=== PATIENT | male | born 1955 | race Caucasian/White ===

== ENCOUNTER 2020-01-06 13:03 | Inpatient (IN) | payer MEDICARE ==
--- NOTE | 2020-01-06 13:35 | ED ---
Fall HPI - General Chief Complaint: Fall Stated Complaint: Fall Time Seen by Provider: 01/06/20 13:14 Source: patient, EMS, RN notes reviewed, old records reviewed Mode of arrival: EMS - History of Present Illness Initial Comments: This 64-year-old male DF for evasive severe left hip pain, fall to left hip. No travel history sick contacts. Patient has supple fall unable to ambulate with severe left pain patient has episodes of falling especially when he goes from positions of sitting standing he mildly loses consciousness fall exactly what happened to him today. Patient fell and landed on left hip complaining of severe left hip pain MD Complaint: fall -: minutes(s) Fall From: standing When Fall Occurred: 1 hour [employer]IPPING LE[employer] P[employer] Fall Witnessed: yes, by family Place Fall Occurred: home Loss of Consciousness: none Prolonged Down Time?: no Symptoms Prior to Fall: none Location: pelvis Location - Extremities: Left: Thigh Severity: severe Severity scale (1-10): 8 Quality: stabbing, crushing Context: tripped/slipped Associated Symptoms: denies - Related Data Allergies Allergy/AdvReac Type Severity Reaction Status Date / Time No Known Allergies Allergy Verified 01/06/20 13:20 Review of Systems ROS Statement: Those systems with pertinent positive or pertinent negative responses have been documented in the HPI. ROS Other: All systems not noted in ROS Statement are negative. Past Medical History Past Medical History: CVA/TIA, Hypertension, Syncope, Vascular Disorder Additional Past Medical History / Comment(s): Orthostatic Hypotension. Past Surgical History: Orthopedic Surgery Additional Past Surgical History / Comment(s): Vascular surgery Smoking Status: Current every day smoker Past Alcohol Use History: Daily Past Drug Use History: None Reported General Exam Limitations: physical limitation General appearance: alert, in no apparent distress Head exam: Present: atraumatic, normocephalic, normal inspection Eye exam: Present: normal appearance, PERRL, EOMI. Absent: scleral icterus, conjunctival injection, periorbital swelling ENT exam: Present: normal exam, mucous membranes moist Neck exam: Present: normal inspection. Absent: tenderness, meningismus, lymphadenopathy Respiratory exam: Present: normal lung sounds bilaterally. Absent: respiratory distress, wheezes, rales, rhonchi, stridor Cardiovascular Exam: Present: regular rate, normal rhythm, normal heart sounds. Absent: systolic murmur, diastolic murmur, rubs, gallop, clicks GI/Abdominal exam: Present: soft, normal bowel sounds. Absent: distended, tenderness, guarding, rebound, rigid Extremities exam: Present: normal inspection, full ROM, normal capillary refill. Absent: tenderness, pedal edema, joint swelling, calf tenderness Back exam: Present: normal inspection Neurological exam: Present: alert, oriented X3, CN II-XII intact Psychiatric exam: Present: normal affect, normal mood Skin exam: Present: warm, dry, intact, normal color. Absent: rash Course Vital Signs 01/06/20 13:12 Temperature 97.3 F L Pulse Rate 83 Respiratory 18 Rate Blood Pressure 129/74 O2 Sat by Pulse 96 Oximetry - Reevaluation(s) Reevaluation #1: 01/06/20 13:47 Medical records reviewed Reevaluation #2: 01/06/20 14:42 Pain is improved Reevaluation #3: 01/06/20 14:42 informed of results and questions answered - Consultations Consultation #1: Spoke with orthopedic surgery to admit Medical Decision Making - Medical Decision Making 64 male be admitted for left hip fracture - Radiology Data Radiology results: report reviewed (X-ray left hip positive for IT fracture), image reviewed Disposition Clinical Impression: Fall, Fracture, intertrochanteric, left femur Disposition: ADMITTED IP TO THIS [facility] Condition: Fair Is patient prescribed a controlled substance at d/c from ED?: No Referrals: Nonstaff,Physician [Primary Care Provider] - 1-2 days
[2020-01-06] MEDS ORDERED: SODIUM CHLORIDE 0.9% 1,000 ML IV STA (14:15)
[2020-01-06] MEDS ORDERED: SODIUM CHLORIDE 0.9% 1,000 ML IV ONE (14:15)
[2020-01-06] MEDS ORDERED: MORPHINE SULFATE 4 MG/ML SYRINGE IVP PRN (14:18)
[2020-01-06] MEDS ORDERED: MORPHINE SULFATE 4 MG/ML SYRINGE IVP STA (14:18)
--- NOTE | 2020-01-06 14:20 | XR ---
EXAMINATION TYPE: XR Hip LT and AP Pelvis DATE OF EXAM: 01/06/2020 COMPARISON: NONE HISTORY: Fall. Pain. TECHNIQUE: 3 views FINDINGS: There is an acute comminuted intertrochanteric fracture of the left femur with some coxa ve ra deformity. There is no dislocation. The pelvic ring is intact. IMPRESSION: Acute intertrochanteric fracture left femur.
--- NOTE | 2020-01-06 14:38 | XR ---
EXAMINATION TYPE: XR chest 1V DATE OF EXAM: 01/06/2020 COMPARISON: NONE HISTORY: Pain TECHNIQUE: Single view FINDINGS: Heart is normal. Lungs are clear of consolidation. Costophrenic angles are clear. There are no hilar masses. There is some coarsening of the interstitial markings in the lower lung mckeon. The bony thorax appears intact. IMPRESSION: Minimal density at the lung bases consistent with subsegmental atelectasis or scarring. N ormal heart.
[2020-01-06 15:19] LABS: Basophils % (A) 0 %; Eosinophils # (A) 0.2 k/uL (0-0.7); Eosinophils % (A) 2 %; HCT 40.8 % (39.0-53.0); HGB 13.3 gm/dL (13.0-17.5); Lymphocytes # (A) 0.9 k/uL (1.0-4.8); Lymphocytes % (A) 8 %; MCH 34.2 pg (25.0-35.0); MCHC 32.7 g/dL (31.0-37.0); MCV 104.4 fL (80.0-100.0); Macrocytosis Slight; Mean Platelet Volume 7.6; Monocytes # (A) 0.3 k/uL (0-1.0); Monocytes % (A) 3 %; Neutrophils # (A) 9.1 k/uL (1.3-7.7); Neutrophils % (A) 86 %; Platelet Count 144 k/uL (150-450); RDW 11.8 % (11.5-15.5); WBC 10.6 k/uL (3.8-10.6)
[2020-01-06 15:29] LABS: ALT 13 U/L (4-49); AST 28 U/L (17-59); African American GFR (CKD) >90 (>60 ml/min/1.73 sqM); Albumin 3.9 g/dL (3.5-5.0); Alkaline Phosphatase 82 U/L (38-126); Anion Gap 9 mmol/L; Blood Urea Nitrogen 8 mg/dL (9-20); Calcium 8.7 mg/dL (8.4-10.2); Carbon Dioxide 23 mmol/L (22-30); Chloride 93 mmol/L (98-107); Creatine Kinase 179 U/L (55-170); Glucose 89 mg/dL (74-99); Non-African American GFR(CKD) >90 (>60 ml/min/1.73 sqM); Phosphorus 3.4 mg/dL (2.5-4.5); Potassium 4.3 mmol/L (3.5-5.1); Sodium 125 mmol/L (137-145); Total Bilirubin 0.7 mg/dL (0.2-1.3); Total Protein 5.9 g/dL (6.3-8.2)
[2020-01-06 15:40] LABS: INR 0.9 (<1.2); Partial Thromboplastin Time 24.3 sec (22.0-30.0); Prothrombin Time 9.7 sec (9.0-12.0)
--- NOTE | 2020-01-06 16:30 | CT ---
EXAMINATION TYPE: CT hip LT wo con DATE OF EXAM: 01/06/2020 COMPARISON: None HISTORY: left hip pain CT DLP: 519.4 mGycm Automated exposure control for dose reduction was used. Multiple axial sections were obtained from the mid ileum to the subtrochanteric femur without contras t. There is comminuted intertrochanteric fracture of the left femur. There is 90 degree coxa vera deform ity. There is no dislocation at the hip joint. The acetabulum is intact. The femoral head is intact. There are small degenerative cysts in the acetabulum. Fracture fragments are displaced up to 1.8 cm. There is some impaction at the fracture site. There is no significant pathologic fluid collection. IMPRESSION: Acute comminuted impacted intertrochanteric fracture left femur.
[2020-01-06] MEDS ORDERED: CYCLOBENZAPRINE 10 MG TAB PO PRN (17:22)
[2020-01-06] MEDS: HYDROmorphone 1 MG/ML 1 ML SYRINGE IVP PRN ×3 (18:00→22:31)
--- NOTE | 2020-01-06 18:06 | P.HPOR ---
History of Present Illness H&P Date: 01/06/20 Chief Complaint: Left hip pain The patient's a 64-year-old male who is a community ambulator with a cane presents after falling today. He fell while coming down some steps. He's been unable to ambulate since. Review of Systems As per HPI Past Medical History Past Medical History: CVA/TIA, Hypertension, Syncope, Vascular Disorder Additional Past Medical History / Comment(s): Orthostatic Hypotension. Past Surgical History: Orthopedic Surgery (Lumbar and cervical laminectomy) Additional Past Surgical History / Comment(s): Vascular surgery Smoking Status: Current every day smoker (One pack per day) Past Alcohol Use History: Daily Past Drug Use History: None Reported Medications and Allergies Allergies Allergy/AdvReac Type Severity Reaction Status Date / Time No Known Allergies Allergy Verified 01/06/20 17:44 Physical Examination - Hip left Gait: other (Nonambulatory) Tenderness with palpation: anterior Pain with motion: other (Pain with log roll left hip/shortening and external rotation left lower extremity) Results Nontender cervical and thoracic spine, mild tenderness lower lumbar spine with no step-off No point tenderness about the upper extremities No pain with external rotation stress of the pelvis Stocking paresthesias bilaterally Nontender both knees and ankles and feet 1+ pedal pulses bilaterally - Labs Labs: Abnormal Lab Results - Last 24 Hours (Table) 01/06/20 01/06/20 Range/Units 15:10 15:10 RBC 3.90 L (4.30-5.90) m/uL MCV 104.4 H (80.0-100.0) fL Plt Count 144 L (150-450) k/uL Neutrophils # 9.1 H (1.3-7.7) k/uL Lymphocytes # 0.9 L (1.0-4.8) k/uL Sodium 125 L (137-145) mmol/L Chloride 93 L (98-107) mmol/L BUN 8 L (9-20) mg/dL Creatine Kinase 179 H (55-170) U/L Total Protein 5.9 L (6.3-8.2) g/dL H & H 01/06/20 Range/Units 15:10 Hgb 13.3 (13.0-17.5) gm/dL Hct 40.8 (39.0-53.0) % Coagulation 01/06/20 Range/Units 15:10 INR 0.9 (<1.2) Result Diagrams: 01/06/20 15:10 01/06/20 15:10 - Diagnostic results Hip x-ray: image reviewed Hip CT: image reviewed (Comminuted/displaced four-part left intertrochanteric femur fracture) Assessment and Plan Assessment: Left comminuted/displaced 4 part intertrochanteric femur fracture History of vascular disease on Plavix Plan: I talked with patient and his regarding his condition along with treatment options and recommend proceeding with surgical intervention tomorrow if medically stable. Potentially he'll require general anesthetic as he is on Plavix. We will likely reinstitute that after surgery. Time with Patient: Greater than 30
[2020-01-06] MEDS: HYDROcodone/APAP 7.5-325MG 1 EACH TAB PO PRN (19:43)
[2020-01-06] MEDS ORDERED: MIDODRINE 5 MG TAB PO PRN (22:32)
--- NOTE | 2020-01-06 22:34 | P.CONS ---
History of Present Illness - Reason for Consult Consult date: 01/06/20 - History of Present Illness The patient is a 64-year-old male with a PMH of hypertension, hyperlipidemia, and spinal DJD who was brought into the ED by EMS after a fall. The patient notes that he was outside with his and grandson and didn't have his cane handy when he suddenly became dizzy and fell on his left side. He denied head trauma or loss of consciousness. He was unable to stand up and EMS had to be called. The patient notes that he has a long-standing history of dizziness if he stands up for too long, which he was told by multiple physicians was related to his nerve damage in his back due to DJD. He reports a history of multiple falls though has never had a fracture before. At time of interview, the patient reported severe left hip pain, 10 out of 10, radiating down to his left thigh. Denied any additional complaints. Denies fever, chills, chest pain, shortness of breath, nausea, or vomiting. In the emergency room a left hip CT revealed an acute comminuted impacted intertrochanteric fracture of the left femur. EKG revealed normal sinus rhythm at 88 bpm with no acute ST/T-wave changes noted as reviewed by me. Chest x-ray revealed possible atelectasis though otherwise unremarkable. Laboratory evaluation revealed a sodium of 125, chloride of 93, BUN 8, creatinine 0.69, CK 179, troponin less than 0.012. The patient was admitted to the surgical service with medicine consulted for preop clearance for planned operative repair of the left femoral fracture. Review of Systems Pertinent positives and negatives as discussed in HPI, a complete review of sys tems was performed and all other systems are negative. Past Medical History Past Medical History: CVA/TIA, Hypertension, Syncope, Vascular Disorder Additional Past Medical History / Comment(s): Orthostatic Hypotension. History of Any Multi-Drug Resistant Organisms: None Reported Past Surgical History: Orthopedic Surgery (Lumbar and cervical laminectomy) Additional Past Surgical History / Comment(s): Vascular surgery Past Anesthesia/Blood Transfusion Reactions: No Reported Reaction Smoking Status: Current every day smoker (One pack per day) Past Alcohol Use History: Daily Past Drug Use History: None Reported Medications and Allergies Home Medications Medication Instructions Recorded Confirmed Type Acetaminophen Tab [Tylenol Tab] 1,000 mg PO Q8H PRN 01/06/20 01/06/20 History Atorvastatin Calcium [Lipitor] 40 mg PO HS 01/06/20 01/06/20 History Cilostazol [Pletal] 100 mg PO BID 01/06/20 01/06/20 History Clopidogrel Bisulfate [Plavix] 75 mg PO DAILY 01/06/20 01/06/20 History Cyclobenzaprine [Flexeril] 5 mg PO HS PRN 01/06/20 01/06/20 History DULoxetine HCL [Cymbalta] 30 mg PO DAILY 01/06/20 01/06/20 History Gabapentin 600 mg PO BID 01/06/20 01/06/20 History HYDROcodone/APAP 10-325MG [[place] 1 tab PO BID PRN 01/06/20 01/06/20 History 10-325] Midodrine [ProAmatine] 5 mg PO TID PRN 01/06/20 01/06/20 History hydroCHLOROthiazide [Hydrodiuril] 25 mg PO DAILY 01/06/20 01/06/20 History lisinopriL [Prinivil] 20 mg PO DAILY 01/06/20 01/06/20 History Allergies Allergy/AdvReac Type Severity Reaction Status Date / Time No Known Allergies Allergy Verified 01/06/20 17:44 Physical Exam Vitals: Vital Signs Temp Pulse Resp BP Pulse Ox 01/06/20 15:13 85 18 127/78 95 01/06/20 13:12 97.3 F L 83 18 129/74 96 Intake and Output 01/06/20 01/06/20 01/06/20 06:59 14:59 22:59 Other: Weight 66.678 kg 66.678 kg General: non toxic, no distress, appears at stated age, normal weight Derm: no unusual rashes/lesions no unusual ecchymoses, warm, dry Head: atraumatic, normocephalic, symmetric Eyes: EOMI, no lid lag, anicteric sclera, pupils equal round reactive to light ENT: Nose and ears atraumatic, no thrush, no pharyngeal erythema Neck: No thyromegaly, no cervical lymphadenopathy, trachea midline, supple Mouth: no lip lesion, mucus membranes moist Cardiovascular: S1S2 reg, no murmur, positive posterior tibial pulse bilateral, no edema, capillary refill less than 2 seconds Lungs: CTA bilateral, no rhonchi, no rales , no accessory muscle use Abdominal: soft, nontender to palpation, no guarding, no appreciable organomegaly, normal bowel sounds Ext: no gross muscle atrophy, muscle strength 5 out of 5 in all extremities left lower extremity due to fracture and pain, no contractures, limited range of motion of the left leg due to pain Neuro: CN II-XI grossly intact, light touch intact all 4 extremities, finger to nose within normal limits, Psych: Alert, oriented, appropriate affect Results CBC & Chem 7: 01/06/20 15:10 01/06/20 15:10 Labs: Abnormal Lab Results - Last 24 Hours (Table) 01/06/20 01/06/20 Range/Units 15:10 15:10 RBC 3.90 L (4.30-5.90) m/uL MCV 104.4 H (80.0-100.0) fL Plt Count 144 L (150-450) k/uL Neutrophils # 9.1 H (1.3-7.7) k/uL Lymphocytes # 0.9 L (1.0-4.8) k/uL Sodium 125 L (137-145) mmol/L Chloride 93 L (98-107) mmol/L BUN 8 L (9-20) mg/dL Creatine Kinase 179 H (55-170) U/L Total Protein 5.9 L (6.3-8.2) g/dL Assessment and Plan Plan: Pre-Operative Evaluation for Traumatic left intertrochanteric femoral fracture -Patient is hyponatremic with sodium of 125 (Goal of >135 prior to surgery) -The patient is NOT currently optimized for surgery -Continue to monitor BMP -C/w NS 100 cc/hr for now -Hold off on patient's HCTZ -Obtain serum and urine osmolality, urine creatinine, urine uric acid -Management including pain control as per surgery Chronic conditions: HTN, HLD -C/w Lisinopril, midodrine, lipitor
[2020-01-07] MEDS: HYDROmorphone 1 MG/ML 1 ML SYRINGE IVP PRN ×4 (01:21→09:45)
[2020-01-07 07:59] LABS: African American GFR (CKD) >90 (>60 ml/min/1.73 sqM); Anion Gap 4 mmol/L; Blood Urea Nitrogen 9 mg/dL (9-20); Calcium 8.7 mg/dL (8.4-10.2); Carbon Dioxide 28 mmol/L (22-30); Chloride 98 mmol/L (98-107); Glucose 97 mg/dL (74-99); Non-African American GFR(CKD) >90 (>60 ml/min/1.73 sqM); Potassium 4.7 mmol/L (3.5-5.1); Sodium 130 mmol/L (137-145)
[2020-01-07] MEDS: DULoxetine HCL 30 MG CAPSULE.DR PO SCH (08:18)
[2020-01-07] MEDS: cilostazoL 100 MG TAB PO SCH ×2 (08:18→20:18)
[2020-01-07] MEDS: lisinopriL 20 MG TAB PO SCH (08:22)
[2020-01-07] MEDS: GABAPENTIN 300 MG CAP PO SCH ×2 (08:22→20:18)
[2020-01-07] MEDS: HYDROcodone/APAP 7.5-325MG 1 EACH TAB PO PRN ×2 (08:24→22:21)
[2020-01-07] MEDS ORDERED: CLOPIDOGREL 75 MG TAB PO SCH (09:00)
--- NOTE | 2020-01-07 11:34 | P.PN ---
Subjective Progress Note Date: 01/07/20 Pt complaining of pain today, also with sweats overnight (says this is not new for him). Na has improved to 130 with fluids. Objective - Vital Signs Vital signs: Vital Signs Temp 97.5 F L 01/07/20 07:00 Pulse 92 01/07/20 07:00 Resp 16 01/07/20 07:00 BP 102/66 01/07/20 07:00 Pulse Ox 96 01/07/20 07:00 Intake & Output 01/06/20 01/07/20 01/07/20 18:59 06:59 18:59 Intake Total 1600 Balance 1600 Weight 66.678 kg Intake: Intake, IV Titration 1600 Amount Sodium Chloride 0.9% 1, 1600 000 ml @ 100 mls/hr IV . Q10H ONE Rx#:[id number] Other: Voiding Method Urinal Urinal # Voids 2 - Exam Gen: awake, alert, diaphoretic HEENT: normocephalic, atraumatic, good hearing acuity, moist mucous membranes Resp: CTAB, good air exchange, no accessory muscle use, no wheezes, crackles, rhonchi CVS: good distal perfusion x 4, RRR, no murmurs, clicks, gallops GI: soft, NTTP, ND : no SPT, no CVAT, adame catheter not present MSK: no pitting edema, no clubbing Neuro: non-focal, no sensory deficits, appropriate tone Psych: cooperative, euthymic mood - Labs CBC & Chem 7: 01/06/20 15:10 01/07/20 07:26 Labs: Abnormal Lab Results - Last 24 Hours (Table) 01/06/20 01/06/20 01/06/20 Range/Units 15:10 15:10 23:34 RBC 3.90 L (4.30-5.90) m/uL MCV 104.4 H (80.0-100.0) fL Plt Count 144 L (150-450) k/uL Neutrophils # 9.1 H (1.3-7.7) k/uL Lymphocytes # 0.9 L (1.0-4.8) k/uL Sodium 125 L (137-145) mmol/L Chloride 93 L (98-107) mmol/L BUN 8 L (9-20) mg/dL Osmolality 261 L (280-301) mosm/kg Creatine Kinase 179 H (55-170) U/L Total Protein 5.9 L (6.3-8.2) g/dL 01/07/20 Range/Units 07:26 RBC (4.30-5.90) m/uL MCV (80.0-100.0) fL Plt Count (150-450) k/uL Neutrophils # (1.3-7.7) k/uL Lymphocytes # (1.0-4.8) k/uL Sodium 130 L (137-145) mmol/L Chloride (98-107) mmol/L BUN (9-20) mg/dL Osmolality (280-301) mosm/kg Creatine Kinase (55-170) U/L Total Protein (6.3-8.2) g/dL Assessment and Plan Assessment: Pre-Operative Evaluation for Traumatic left intertrochanteric femoral fracture - Patient is hyponatremic with sodium of 130, improving with fluids - The patient may now proceed to surgery without further need of intervention - would recommend NS at 100cc/hr intra and chintan-operatively - Continue to monitor BMP - Obtain serum and urine osmolality, urine creatinine, urine uric acid; DDx = thiazide use, polydipsia, beer drinkers potomania, poor solute intake, or combination - anticipate continued improvement with fluids. - Management including pain control as per surgery Chronic conditions: HTN, HLD -C/w Lisinopril, midodrine, lipitor
[2020-01-07] MEDS ORDERED: LACTATED RINGERS 1,000 ML IV ONE (12:23)
[2020-01-07] MEDS ORDERED: ONDANSETRON 4 MG/2 ML VIAL ONE (13:49)
[2020-01-07] MEDS ORDERED: NEOSTIGMINE 1 MG/ML 10 ML VIAL ONE (13:49)
[2020-01-07] MEDS ORDERED: DEXAMETHASONE SOD PHOSPHATE 10 MG/ML 1 ML VIAL ONE (13:49)
[2020-01-07] MEDS ORDERED: fentaNYL (PF) 50 MCG/ML 2 ML AMP ONE (13:49)
[2020-01-07] MEDS ORDERED: PHENYLEPHRINE-0.9% NACL SYG 1 MG/10 ML SYRINGE ONE (13:49)
[2020-01-07] MEDS ORDERED: PROPOFOL 10 MG/ML 20 ML VIAL IV ONE (13:49)
[2020-01-07] MEDS ORDERED: SUCCINYLCHOLINE CHLORIDE 100 MG/5 ML SYR IV ONE (13:49)
[2020-01-07] MEDS ORDERED: GLYCOPYRROLATE 0.2 MG/ML 2 ML VIAL ONE (13:49)
[2020-01-07] MEDS ORDERED: ROCURONIUM BROMIDE 10 MG/ML 5 ML VIAL IV ONE (13:49)
[2020-01-07] MEDS ORDERED: LIDOCAINE 1% INJ 10MG/ML (20 ML MDV) ONE (13:49)
[2020-01-07] MEDS ORDERED: SODIUM CHLORIDE 0.9% 100 ML with ceFAZolin 2,000 MG IV ONE ×2 (14:24)
[2020-01-07] MEDS ORDERED: ceFAZolin 1,000 MG in SODIUM CHLORIDE 0.9% 1,000 ML IRRIGATION ONE (14:27)
[2020-01-07] MEDS ORDERED: MAGNESIUM HYDROXIDE 2,400 MG/10 ML CUP PO PRN (15:22)
[2020-01-07] MEDS ORDERED: NALOXONE 0.4 MG/ML 1 ML VIAL IV PRN (15:22)
--- NOTE | 2020-01-07 15:29 | P.OP ---
Date of Procedure: 01/07/20 Preoperative Diagnosis: Left 4 part intertrochanteric femur fracturedisplaced Postoperative Diagnosis: Same Procedure(s) Performed: Trochanteric intramedullary nailing left intertrochanteric femur fracture Implants: Short [place] gamma [id number] Anesthesia: EMMANUELA Surgeon: Elroy Rodriguez Account Director #1: Julien Cabrera Estimated Blood Loss (ml): 100 Pathology: none sent Condition: stable Disposition: PACU Indications for Procedure: the patient is a 64-year-old male presents after falling injuring his left hip. Upon evaluation he was noted to have evidence of a displaced/comminuted 4 part left intertrochanteric femur fracture. A discussion of the risks and benefits of operative intervention was made with patient and his . He opted to proceed with surgery. Operative risks to include infection, neurovascular injury, development of blood clots, possible development nonunion/malunion, and possible need for subsequent procedures was discussed. Informed consent was obtained. Operative Findings: As below Description of Procedure: The patient was brought to the operating room, and after induction of general anesthesia was positioned supine on the Fior table. The fracture was reduced with longitudinal traction and internal rotation of the left lower extremity. This was verified in the AP and lateral views with the aid of fluoroscopy. The left lower extremity was prepped and draped in normal fashion. An 8 cm incision was then made proximal to the greater trochanter. Skin and subcu tissues were divided sharply. Electrocautery was used for hemostasis. The gluteus rachael fascia was split in line with the skin incision. Blunt dissection was made down to level greater trochanter. A starting awl was placed in the tip the greater trochanter with a fluoroscopy. A ball-tipped guidewire was then inserted down the femoral canal. Sequential reaming was performed up to 13 mm distally. Proximally the 15.5 mm reamer was inserted to the depth lesser trochanter. A short 125 gamma nail was then inserted over the guidewire gently. This was taken to the appropriate depth. The guidewire was then removed. The threaded guidepin was then placed into the centercenter position of the femoral head and neck on the AP and lateral views to within 5 mm the articular surface with the aid of fluoroscopy. A triple reamer was used to a depth of 95 mm. A 100 mm compression screw was inserted again to within 5 mm of the articular surface on the AP and lateral views. The proximal locking screw was inserted and backed off to allow sliding of the compression screw. The appropriate length 4.5 mm cortical screws placed in the distal static position with the aid of fluoroscopy. Final fluoroscopic view showed adequate reduction of this complex fracture pattern and placement of the implant on both the AP and lateral views. The wounds were irrigated normal saline. The fascia was closed with running 0 Vicryl suture. The subcutaneous tissues were reapproximated interrupted 2-0 Vicryl sutures. Skin was reapproximated attila. A sterile dressing was applied. The patient was awoken from general anesthesia and transferred to recovery room in fair condition. Blood loss was estimated 100 mL. No consultations were incurred. Sponge and needle counts were correct at the end the case. Ramakrishna ARTHUR assisted during the major components the case to include positioning, fracture reduction, implant placement, and closure.
[2020-01-07] MEDS ORDERED: HYDROmorphone 0.5 MG/0.5 ML SYRINGE IVP ONE ×5 (15:35→16:30)
[2020-01-07] MEDS ORDERED: SODIUM CHLORIDE 0.9% 1,000 ML IV ONE (16:33)
[2020-01-07] MEDS: ATORVASTATIN 80 MG TAB PO SCH (20:18)
[2020-01-07] MEDS: SENNOSIDES-DOCUSATE SODIUM 1 EACH TAB PO SCH (20:18)
[2020-01-08] MEDS: CYCLOBENZAPRINE 5 MG TAB PO PRN ×2 (01:27→11:22)
[2020-01-08] MEDS: HYDROcodone/APAP 7.5-325MG 1 EACH TAB PO PRN ×3 (05:18→16:02)
--- NOTE | 2020-01-08 07:21 | XR ---
EXAMINATION TYPE: XR Hip Complete LT, FL guidance operating room DATE OF EXAM: 01/07/2020 COMPARISON: NONE HISTORY: 64-year-old male ORIF left hip FINDINGS: Images demonstrating antegrade intramedullary nailing with screw fixation on the left. FLUOROSCOPY Fluoroscopy time of 1 minute 35 seconds was used during left hip internal fixation. 12 image/s docum ent/s the procedure. IMPRESSION: Intraoperative fluoroscopy as above.
[2020-01-08] MEDS ORDERED: LACTATED RINGERS 1,000 ML IV ONE (07:45)
[2020-01-08 07:55] LABS: Basophils % (A) 0 %; Eosinophils % (A) 0 %; HCT 24.2 % (39.0-53.0); Lymphocytes # (A) 0.7 k/uL (1.0-4.8); Lymphocytes % (A) 7 %; MCH 34.3 pg (25.0-35.0); MCHC 32.2 g/dL (31.0-37.0); MCV 106.6 fL (80.0-100.0); Macrocytosis Slight; Monocytes # (A) 0.5 k/uL (0-1.0); Monocytes % (A) 4 %; Neutrophils # (A) 9.2 k/uL (1.3-7.7); Neutrophils % (A) 88 %; Platelet Count 103 k/uL (150-450); RBC 2.27 m/uL (4.30-5.90); WBC 10.4 k/uL (3.8-10.6)
[2020-01-08 08:02] LABS: HGB 7.8 gm/dL (13.0-17.5)
[2020-01-08 08:09] LABS: ALT 13 U/L (4-49); AST 28 U/L (17-59); African American GFR (CKD) >90 (>60 ml/min/1.73 sqM); Albumin 2.5 g/dL (3.5-5.0); Alkaline Phosphatase 53 U/L (38-126); Anion Gap 3 mmol/L; Blood Urea Nitrogen 13 mg/dL (9-20); Calcium 7.7 mg/dL (8.4-10.2); Carbon Dioxide 23 mmol/L (22-30); Chloride 98 mmol/L (98-107); Glucose 123 mg/dL (74-99); Magnesium 1.9 mg/dL (1.6-2.3); Non-African American GFR(CKD) >90 (>60 ml/min/1.73 sqM); Potassium 4.4 mmol/L (3.5-5.1); Sodium 124 mmol/L (137-145); Total Bilirubin 0.3 mg/dL (0.2-1.3); Total Protein 4.2 g/dL (6.3-8.2)
[2020-01-08] MEDS: lisinopriL 20 MG TAB PO SCH (08:53)
[2020-01-08] MEDS: cilostazoL 100 MG TAB PO SCH ×2 (08:57→20:00)
[2020-01-08] MEDS: GABAPENTIN 300 MG CAP PO SCH ×2 (08:58→20:00)
[2020-01-08] MEDS: DULoxetine HCL 30 MG CAPSULE.DR PO SCH (08:58)
[2020-01-08] MEDS: CLOPIDOGREL 75 MG TAB PO SCH (08:58)
--- NOTE | 2020-01-08 11:59 | P.PN ---
Subjective Progress Note Date: 01/08/20 No new complaints todya. Pt reports feeling much better from pain perspective. Acute drop in hgb s/p operation. Objective - Vital Signs Vital signs: Vital Signs Temp 98.3 F 01/08/20 11:28 Pulse 89 01/08/20 11:28 Resp 18 01/08/20 11:28 BP 134/67 01/08/20 11:28 Pulse Ox 99 01/08/20 11:28 Intake & Output 01/07/20 01/08/20 01/08/20 18:59 06:59 18:59 Intake Total 1001 300 320 Output Total 500 300 Balance 501 0 320 Intake: IV 1001 Intake, IV Titration 300 Amount Sodium Chloride 0.9% 1, 300 000 ml @ 100 mls/hr IV . Q10H ONE Rx#:[id number] Oral 320 Blood Product 0 Rc Pheresis As3 Unit 0 [id number] Output: Urine 400 300 Estimated Blood Loss 100 Other: Voiding Method Urinal Urinal Urinal # Voids 2 - Exam Gen: awake, alert, diaphoretic HEENT: normocephalic, atraumatic, good hearing acuity, moist mucous membranes Resp: CTAB, good air exchange, no accessory muscle use, no wheezes, crackles, rhonchi CVS: good distal perfusion x 4, RRR, no murmurs, clicks, gallops GI: soft, NTTP, ND : no SPT, no CVAT, adame catheter not present MSK: no pitting edema, no clubbing Neuro: non-focal, no sensory deficits, appropriate tone Psych: cooperative, euthymic mood - Labs CBC & Chem 7: 01/08/20 07:15 01/08/20 07:15 Labs: Abnormal Lab Results - Last 24 Hours (Table) 01/06/20 01/08/20 01/08/20 Range/Units 15:10 07:15 07:15 RBC 2.27 L (4.30-5.90) m/uL Hgb 7.8 L D (13.0-17.5) gm/dL Hct 24.2 L (39.0-53.0) % MCV 106.6 H (80.0-100.0) fL Plt Count 103 L (150-450) k/uL Neutrophils # 9.2 H (1.3-7.7) k/uL Lymphocytes # 0.7 L (1.0-4.8) k/uL Sodium 124 L (137-145) mmol/L Glucose 123 H (74-99) mg/dL Calcium 7.7 L (8.4-10.2) mg/dL Total Protein 4.2 L (6.3-8.2) g/dL Albumin 2.5 L (3.5-5.0) g/dL Crossmatch See Detail Assessment and Plan Assessment: 1. Preoperative Clearance 2. Acute Blood Loss Anemia 3. Hyponatremia, likely secondary to thiazide 4. HTN 5. HLD Pre-Operative Evaluation for Traumatic left intertrochanteric femoral fracture - Patient is hyponatremic with sodium of 124 - would recommend NS at 100cc/hr intra and chintan-operatively - Continue to monitor BMP - Obtain serum and urine osmolality, urine creatinine, urine uric acid; DDx = thiazide use, polydipsia, beer drinkers potomania, poor solute intake, or combination - anticipate improvement with fluids. - Management including pain control as per surgery - type/cross and transfuse 1U PRBCs on 01/07 - on discharge will start daily oral iron. Chronic conditions: HTN, HLD -C/w Lisinopril, midodrine, lipitor
[2020-01-08] MEDS: diazePAM 5 MG TAB PO PRN (16:01)
--- NOTE | 2020-01-08 17:34 | P.PN ---
Subjective Progress Note Date: 01/08/20 Principal diagnosis: Status post IT nail left intertrochanteric femur fracture Patient that at bedside, is resting comfortably. He's had spasms in the left leg throughout the day. He normally has spasming in that leg which she does take Flexeril, and has worsened since surgery. I did add Valium. Objective - Vital Signs Vital signs: Vital Signs Temp 98.1 F 01/08/20 15:42 Pulse 101 H 01/08/20 15:42 Resp 20 01/08/20 15:42 BP 125/72 01/08/20 15:42 Pulse Ox 96 01/08/20 15:42 Intake & Output 01/07/20 01/08/20 01/08/20 18:59 06:59 18:59 Intake Total 1001 300 630 Output Total 500 300 Balance 501 0 630 Intake: IV 1001 Intake, IV Titration 300 Amount Sodium Chloride 0.9% 1, 300 000 ml @ 100 mls/hr IV . Q10H ONE Rx#:[id number] Oral 320 Blood Product 310 Rc Pheresis As3 Unit 310 [id number] Output: Urine 400 300 Estimated Blood Loss 100 Other: Voiding Method Urinal Urinal Urinal # Voids 2 2 - Exam Left lower extremity: Incisions are clean, dry and intact. [place] are in good position and condition. Minimal soft tissue swelling present. Soft, no tenderness with palpation. Distal neurovascular exam is intact. - Labs CBC & Chem 7: 01/08/20 07:15 01/08/20 07:15 Labs: Abnormal Lab Results - Last 24 Hours (Table) 01/06/20 01/08/20 01/08/20 Range/Units 15:10 07:15 07:15 RBC 2.27 L (4.30-5.90) m/uL Hgb 7.8 L D (13.0-17.5) gm/dL Hct 24.2 L (39.0-53.0) % MCV 106.6 H (80.0-100.0) fL Plt Count 103 L (150-450) k/uL Neutrophils # 9.2 H (1.3-7.7) k/uL Lymphocytes # 0.7 L (1.0-4.8) k/uL Sodium 124 L (137-145) mmol/L Glucose 123 H (74-99) mg/dL Calcium 7.7 L (8.4-10.2) mg/dL Total Protein 4.2 L (6.3-8.2) g/dL Albumin 2.5 L (3.5-5.0) g/dL Crossmatch See Detail Assessment and Plan Assessment: Status post IT nail left intertrochanteric femur fracture Plan: pain control, continue current medications GI and DVT prophylaxis, continue current medications Continue work with physical therapy Encourage incentive spirometer Daily dressing changes Medical recommendations We'll discharge in the next day or 2 Time with Patient: Less than 30
[2020-01-08 19:19] LABS: Appearance,Urine Clear (Clear); Color,Urine Yellow
[2020-01-08 19:20] LABS: Bilirubin,Urine Negative (Negative); Blood,Urine Negative (Negative); Glucose,Urine (UA) Negative (Negative); Ketones,Urine Negative (Negative); Protein,Urine Negative (Negative); Specific Gravity,Urine 1.005 (1.001-1.035)
[2020-01-08 19:21] LABS: Leukocyte Esterase,Urine Negative (Negative); Nitrite,Urine Negative (Negative); Urobilinogen,Urine 0.2 mg/dL (<2.0)
[2020-01-08] MEDS: ATORVASTATIN 80 MG TAB PO SCH (20:00)
[2020-01-08] MEDS: SENNOSIDES-DOCUSATE SODIUM 1 EACH TAB PO SCH (20:00)
[2020-01-08] MEDS: HYDROmorphone 1 MG/ML 1 ML SYRINGE IVP PRN (21:48)
[2020-01-09] MEDS: diazePAM 5 MG TAB PO PRN ×2 (02:07→17:57)
[2020-01-09] MEDS: CYCLOBENZAPRINE 5 MG TAB PO PRN ×3 (02:07→22:28)
[2020-01-09] MEDS: HYDROmorphone 1 MG/ML 1 ML SYRINGE IVP PRN (03:33)
[2020-01-09] MEDS: HYDROcodone/APAP 7.5-325MG 1 EACH TAB PO PRN (05:44)
[2020-01-09] MEDS: lisinopriL 20 MG TAB PO SCH (07:46)
[2020-01-09 08:09] LABS: HCT 24.1 % (39.0-53.0); HGB 7.8 gm/dL (13.0-17.5); MCH 33.6 pg (25.0-35.0); MCHC 32.2 g/dL (31.0-37.0); MCV 104.5 fL (80.0-100.0); Macrocytosis Slight; Mean Platelet Volume 8.7; Platelet Count 127 k/uL (150-450); RBC 2.31 m/uL (4.30-5.90); RDW 14.1 % (11.5-15.5); WBC 9.2 k/uL (3.8-10.6)
[2020-01-09 08:22] LABS: African American GFR (CKD) >90 (>60 ml/min/1.73 sqM); Anion Gap 2 mmol/L; Blood Urea Nitrogen 8 mg/dL (9-20); Calcium 7.9 mg/dL (8.4-10.2); Carbon Dioxide 25 mmol/L (22-30); Chloride 101 mmol/L (98-107); Glucose 95 mg/dL (74-99); Magnesium 1.8 mg/dL (1.6-2.3); Non-African American GFR(CKD) >90 (>60 ml/min/1.73 sqM); Sodium 128 mmol/L (137-145)
[2020-01-09 08:25] LABS: Potassium 4.6 mmol/L (3.5-5.1)
[2020-01-09] MEDS: CLOPIDOGREL 75 MG TAB PO SCH (09:43)
[2020-01-09] MEDS: DULoxetine HCL 30 MG CAPSULE.DR PO SCH (09:43)
[2020-01-09] MEDS: cilostazoL 100 MG TAB PO SCH ×2 (09:43→20:12)
[2020-01-09] MEDS: GABAPENTIN 300 MG CAP PO SCH ×2 (09:43→20:12)
[2020-01-09] MEDS ORDERED: oxyCODONE-APAP 7.5-325MG 1 EACH TAB PO PRN (09:46)
[2020-01-09] MEDS ORDERED: ACETAMINOPHEN TAB 500 MG TAB PO PRN (09:50)
[2020-01-09] MEDS: LIDOCAINE 5% PATCH TOPICAL SCH (11:28)
--- NOTE | 2020-01-09 11:29 | CDI ---
Expected possible outcome of surgical procedure Documentation Clarification Form Date: 01/09/2020 10:58:00 AM From: Angeles Hernandez RN, CCDS Admit Date: 01/06/2020 02:42:00 PM Patient Name: Arturo Pierson Visit Number: [id number] Discharge Date: ATTENTION: The Clinical Documentation Specialists (CDI) and [facility] Coding Staff appreciate your assistance in clarifying documentation. Please respond to the clarification below the line at the bottom and electronically sign. The CDI & [facility] Coding staff will review the response and follow-up if needed. Please note: Queries are made part of the Legal Health Record. If you have any questions, please contact the author of this message via ITS. Dr. Nile Angel In your 01/07 progress note acute blood loss anemia is documented. Please further clarify post op diagnosis. Patients Admitting Diagnosis: Left 4 part intertrochanteric femur fracture- displaced Post-Operative Diagnosis: Same Procedure performed: Trochanteric intramedullary nailing left intertrochanteric femur fracture History/Risk Factors: CVA, TIA, Hypertension, Vascular disorder, Current every day smoker Clinical Indicators: 64-year-old male present after falling and had evidence of a displaced, comminuted 4 part left intertrochanteric femur fracture. Operative note On 01/06, estimated blood loss was 100 mls. 01/07 IM progress note: Acute drop in hgb s/p operation. 01/07 Vital signs @ 11:28: 134/67 89 18 98.3 01/05 Labs: HGB 13.3, HCT 40.8 01/07 Labs: HGB 7.8, HCT 24.2 Treatment: Monitor CBC daily x3 Transfuse 1 Unit PRBC Monitor VS, I/O per protocol In order to accurately reflect this patients severity of illness, please clarify if the acute blood loss anemia: -is a complication of surgical procedure -is an expected outcome of the surgical procedure -is related to co-morbid condition(s) of, specify -Other please specify -Unable to determine (Last Revision: June 2019) MTDD
--- NOTE | 2020-01-09 13:03 | P.PN ---
Subjective Progress Note Date: 01/09/20 Principal diagnosis: Status post IT nail left intertrochanteric femur fracture Patient that at bedside, is resting comfortably. Continue to complain of spasms involving his left lower extremity. Denies any chest pain or shortness of breath. Objective - Vital Signs Vital signs: Vital Signs Temp 98.1 F 01/09/20 06:50 Pulse 98 01/09/20 06:50 Resp 16 01/09/20 06:50 BP 95/57 01/09/20 06:50 Pulse Ox 91 L 01/09/20 06:50 Intake & Output 01/08/20 01/09/20 01/09/20 18:59 06:59 18:59 Intake Total 630 200 240 Output Total 500 650 275 Balance 130 -450 -35 Intake: Oral 320 200 240 Blood Product 310 Rc Pheresis As3 Unit 310 [id number] Output: Urine 500 650 275 Other: Voiding Method Urinal Urinal # Voids 1 1 1 - Exam Left lower extremity: Incisions are clean, dry and intact. [place] are in good position and condition. Minimal soft tissue swelling present. Soft, no tenderness with p alpation. Distal neurovascular exam is intact. - Labs CBC & Chem 7: 01/09/20 07:24 01/09/20 07:24 Labs: Abnormal Lab Results - Last 24 Hours (Table) 01/06/20 01/09/20 01/09/20 Range/Units 15:10 07:24 07:24 RBC 2.31 L (4.30-5.90) m/uL Hgb 7.8 L (13.0-17.5) gm/dL Hct 24.1 L (39.0-53.0) % MCV 104.5 H (80.0-100.0) fL Plt Count 127 L (150-450) k/uL Sodium 128 L (137-145) mmol/L BUN 8 L (9-20) mg/dL Creatinine 0.56 L (0.66-1.25) mg/dL Calcium 7.9 L (8.4-10.2) mg/dL Crossmatch See Detail Assessment and Plan Assessment: Status post IT nail left intertrochanteric femur fracture Plan: pain control, continue current medications GI and DVT prophylaxis, continue current medications Continue work with physical therapy Encourage incentive spirometer Daily dressing changes Medical recommendations Plan for discharge to rehab tomorrow Time with Patient: Less than 30
--- NOTE | 2020-01-09 13:18 | P.PN ---
Subjective Progress Note Date: 01/09/20 Pt reports pain all over today. Significant chronic back and neck pain. Less so pain from surgery. Objective - Vital Signs Vital signs: Vital Signs Temp 98.1 F 01/09/20 06:50 Pulse 98 01/09/20 06:50 Resp 16 01/09/20 06:50 BP 95/57 01/09/20 06:50 Pulse Ox 91 L 01/09/20 06:50 Intake & Output 01/08/20 01/09/20 01/09/20 18:59 06:59 18:59 Intake Total 630 200 240 Output Total 500 650 275 Balance 130 -450 -35 Intake: Oral 320 200 240 Blood Product 310 Rc Pheresis As3 Unit 310 [id number] Output: Urine 500 650 275 Other: Voiding Method Urinal Urinal # Voids 1 1 1 - Exam Gen: awake, alert, diaphoretic HEENT: normocephalic, atraumatic, good hearing acuity, moist mucous membranes Resp: CTAB, good air exchange, no accessory muscle use, no wheezes, crackles, rhonchi CVS: good distal perfusion x 4, RRR, no murmurs, clicks, gallops GI: soft, NTTP, ND : no SPT, no CVAT, adame catheter not present MSK: no pitting edema, no clubbing Neuro: non-focal, no sensory deficits, appropriate tone Psych: cooperative, euthymic mood - Labs CBC & Chem 7: 01/09/20 07:24 01/09/20 07:24 Labs: Abnormal Lab Results - Last 24 Hours (Table) 01/06/20 01/09/20 01/09/20 Range/Units 15:10 07:24 07:24 RBC 2.31 L (4.30-5.90) m/uL Hgb 7.8 L (13.0-17.5) gm/dL Hct 24.1 L (39.0-53.0) % MCV 104.5 H (80.0-100.0) fL Plt Count 127 L (150-450) k/uL Sodium 128 L (137-145) mmol/L BUN 8 L (9-20) mg/dL Creatinine 0.56 L (0.66-1.25) mg/dL Calcium 7.9 L (8.4-10.2) mg/dL Crossmatch See Detail Assessment and Plan Assessment: 1. Preoperative Clearance 2. Acute Blood Loss Anemia 3. Hyponatremia, likely secondary to thiazide 4. HTN 5. HLD Pre-Operative Evaluation for Traumatic left intertrochanteric femoral fracture - Patient is hyponatremic with sodium of 124 - would recommend NS at 100cc/hr intra and chintan-operatively - Continue to monitor BMP - Obtain serum and urine osmolality, urine creatinine, urine uric acid; DDx = thiazide use, polydipsia, beer drinkers potomania, poor solute intake, or combination - anticipate improvement with fluids. - Management including pain control as per surgery - type/cross and transfuse 1U PRBCs on 01/07 - started daily oral iron. Chronic conditions: HTN, HLD -C/w Lisinopril, midodrine, lipitor
[2020-01-09] MEDS: FERROUS SULFATE 325 MG TAB PO SCH (16:39)
[2020-01-09] MEDS: ATORVASTATIN 80 MG TAB PO SCH (20:12)
[2020-01-09] MEDS: SENNOSIDES-DOCUSATE SODIUM 1 EACH TAB PO SCH (20:12)
[2020-01-10 07:10] LABS: HCT 25.5 % (39.0-53.0); HGB 8.4 gm/dL (13.0-17.5); MCH 34.2 pg (25.0-35.0); MCV 103.7 fL (80.0-100.0); Macrocytosis Slight; Mean Platelet Volume 7.5; Platelet Count 169 k/uL (150-450); RBC 2.45 m/uL (4.30-5.90); RDW 13.9 % (11.5-15.5); WBC 7.9 k/uL (3.8-10.6)
[2020-01-10 07:24] LABS: African American GFR (CKD) >90 (>60 ml/min/1.73 sqM); Anion Gap 4 mmol/L; Blood Urea Nitrogen 7 mg/dL (9-20); Calcium 8.1 mg/dL (8.4-10.2); Carbon Dioxide 28 mmol/L (22-30); Chloride 98 mmol/L (98-107); Glucose 97 mg/dL (74-99); Magnesium 1.8 mg/dL (1.6-2.3); Non-African American GFR(CKD) >90 (>60 ml/min/1.73 sqM); Potassium 4.2 mmol/L (3.5-5.1); Sodium 130 mmol/L (137-145)
[2020-01-10 08:12] VITALS: BP 110/67; PULSE 101; RESP 16; TEMP 98.1
[2020-01-10] MEDS: GABAPENTIN 300 MG CAP PO SCH (08:27)
[2020-01-10] MEDS: LIDOCAINE 5% PATCH TOPICAL SCH (08:27)
[2020-01-10] MEDS: cilostazoL 100 MG TAB PO SCH (08:27)
[2020-01-10] MEDS: DULoxetine HCL 30 MG CAPSULE.DR PO SCH (08:27)
[2020-01-10] MEDS: CLOPIDOGREL 75 MG TAB PO SCH (08:27)
[2020-01-10] MEDS: lisinopriL 20 MG TAB PO SCH (08:28)
--- NOTE | 2020-01-10 11:47 | P.PN ---
Subjective Progress Note Date: 01/10/20 Pt doing much better today from pain perspective. His sodium has improved as well. No new copmlaints at this time. Objective - Vital Signs Vital signs: Vital Signs Temp 98.1 F 01/10/20 07:41 Pulse 101 H 01/10/20 07:41 Resp 16 01/10/20 07:41 BP 110/67 01/10/20 07:41 Pulse Ox 93 L 01/10/20 07:41 Intake & Output 01/09/20 01/10/20 01/10/20 18:59 06:59 18:59 Intake Total 720 100 Output Total 625 400 Balance 95 -300 Intake: Oral 720 100 Output: Urine 625 400 Other: Voiding Method Urinal Urinal Urinal # Voids 1 # Bowel Movements 0 - Exam Gen: awake, alert, diaphoretic HEENT: normocephalic, atraumatic, good hearing acuity, moist mucous membranes Resp: CTAB, good air exchange, no accessory muscle use, no wheezes, crackles, rhonchi CVS: good distal perfusion x 4, RRR, no murmurs, clicks, gallops GI: soft, NTTP, ND : no SPT, no CVAT, adame catheter not present MSK: no pitting edema, no clubbing Neuro: non-focal, no sensory deficits, appropriate tone Psych: cooperative, euthymic mood - Labs CBC & Chem 7: 01/10/20 06:42 01/10/20 06:42 Labs: Abnormal Lab Results - Last 24 Hours (Table) 01/10/20 01/10/20 Range/Units 06:42 06:42 RBC 2.45 L (4.30-5.90) m/uL Hgb 8.4 L (13.0-17.5) gm/dL Hct 25.5 L (39.0-53.0) % MCV 103.7 H (80.0-100.0) fL Sodium 130 L (137-145) mmol/L BUN 7 L (9-20) mg/dL Creatinine 0.58 L (0.66-1.25) mg/dL Calcium 8.1 L (8.4-10.2) mg/dL Assessment and Plan Assessment: 1. Preoperative Clearance 2. Acute Blood Loss Anemia 3. Hyponatremia, likely secondary to thiazide 4. HTN 5. HLD Pre-Operative Evaluation for Traumatic left intertrochanteric femoral fracture - Patient is hyponatremic with sodium of 130 - Continue to monitor BMP - Obtain serum and urine osmolality, urine creatinine, urine uric acid; DDx = thiazide use, polydipsia, beer drinkers potomania, poor solute intake, or combination - anticipate improvement with fluids. - Management including pain control as per surgery - type/cross and transfuse 1U PRBCs on 01/07 - started daily oral iron. Patient is cleared for discharge from medical standpoint. Chronic conditions: HTN, HLD -C/w Lisinopril, midodrine, lipitor
[2020-01-10] MEDS: FERROUS SULFATE 325 MG TAB PO SCH (12:00)
--- NOTE | 2020-01-10 12:09 | P.PN ---
Subjective Progress Note Date: 01/10/20 Principal diagnosis: Status post IT nail left intertrochanteric femur fracture Patient that at bedside, is resting comfortably. Continue to complain of spasms involving his left lower extremity. Denies any chest pain or shortness of breath. Objective - Vital Signs Vital signs: Vital Signs Temp 98.1 F 01/10/20 07:41 Pulse 101 H 01/10/20 07:41 Resp 16 01/10/20 07:41 BP 110/67 01/10/20 07:41 Pulse Ox 93 L 01/10/20 07:41 Intake & Output 01/09/20 01/10/20 01/10/20 18:59 06:59 18:59 Intake Total 720 100 Output Total 625 400 Balance 95 -300 Intake: Oral 720 100 Output: Urine 625 400 Other: Voiding Method Urinal Urinal Urinal # Voids 1 # Bowel Movements 0 - Exam Left lower extremity: Incisions are clean, dry and intact. [place] are in good position and condition. Minimal soft tissue swelling present. Soft, no tenderness with palpation. Distal neurovascular exam is intact. - Labs CBC & Chem 7: 01/10/20 06:42 01/10/20 06:42 Labs: Abnormal Lab Results - Last 24 Hours (Table) 01/10/20 01/10/20 Range/Units 06:42 06:42 RBC 2.45 L (4.30-5.90) m/uL Hgb 8.4 L (13.0-17.5) gm/dL Hct 25.5 L (39.0-53.0) % MCV 103.7 H (80.0-100.0) fL Sodium 130 L (137-145) mmol/L BUN 7 L (9-20) mg/dL Creatinine 0.58 L (0.66-1.25) mg/dL Calcium 8.1 L (8.4-10.2) mg/dL Assessment and Plan Assessment: Status post IT nail left intertrochanteric femur fracture Plan: pain control, resume norco 10 GI and DVT prophylaxis, resume plavix Continue work with physical therapy Encourage incentive spirometer Daily dressing changes Medical recommendations Plan for discharge to rehab today Time with Patient: Less than 30
--- NOTE | 2020-01-10 12:13 | P.DS ---
Providers Date of admission: 01/06/20 14:42 Expected date of discharge: 01/10/20 Attending physician: Elroy Rodriguez Consults: 01/06/20 17:21 Consult Physician Urgent Consulting Provider: Jewels Tolbert Consult Reason/Comments: medical clearance Do you want consulting provider notified?: Yes Primary care physician: Physician Nonstaff Hospital Course: Date of admission: 01/06/2020 Date of discharge: 01/10/2020 Admission diagnosis: Displaced left intertrochanteric femur fracture Discharge diagnosis: Status post IM nail left intertrochanteric femur fracture Attending physician: Dr. Rodriguez Surgical procedures: IM nail left intertrochanteric femur fracture Brief history: Patient is a 64-year-old male with a history of a recent fall that developed in a left intertrochanteric femur fracture. Patient was admitted to the hospital on 01/06/2020 with plan for surgery on 01/07/2020. Hospital course: Details of patient's surgery can be found in operative report. Patient tolerated the procedure well and was subsequently transported to orthopedic floor. Patient's orthopeidc and medical care was provided daily. Patient had daily laboratory tests performed for evaluation of overall blood counts. Patient had daily physical therapy to include strengthening range of motion as well as education with walker ambulation. Patient was treated with Plavix for their postoperative DVT prophylaxis during their inpatient stay. Patient was noted to have a relatively uneventful postoperative course. Patient reported satisfactory pain control with oral pain medications by postoperative day 0. Patient showed satisfactory progress with physical therapy. Patient moved steadily through the program and had no difficulty meeting the goals by postoperative day 3. Given patient's otherwise satisfactory course and having met physical therapy goals, plan is to discharge patient rehab on postoperative day 3. Discharge condition/disposition: Patient will be discharged to rehab in stable condition. Discharge medications: Instructions are given on resumption of patient's normal daily medications per primary care recommendation, in addition patient will be prescribed milk of magnesia, Senokot, Lidoderm patch, ferrous sulfate Discharge instructions: 1. Wound care and infection precautions, keep incision dry and covered while showering, no lotions, creams, moisturizers. No soaking, tubs, pools, hottubs. Do not scrub over the incision. 2. Weight-bear as tolerated with walker / cane until follow-up. 3. Ice and elevate when necessary. Do not exceed 20 minutes per hour with ice pack. 4. Utilize compression sleeve until seen at first follow up appointment. 5. Visiting nursing care. 6. Home physical therapy. 7. Pain meds and anticoagulants per prescription. 8. Pain medication has potential to cause constipation. Increase oral fluid and fiber intake. Contact primary care provider if you have not had a bowel movement within 48 hours after discharge 9. No anti-inflammatory medication until discussed at first post operative visit, this including Motrin, Aleve, Mobic, Diclofenac. 10. Follow up in office at 2 weeks postop with Ramakrishna Cabrera PA-C 11. Follow up with your primary care doctor 7-10 days after discharge. 12. Contact [facility] with any questions, . Procedures: Intramedullary nail left intertrochanteric femur fracture Patient Condition at Discharge: Fair Plan - Discharge Summary Discharge Rx Participant: No New Discharge Prescriptions: New Ferrous Sulfate [Iron (65 MG Elemental)] 325 mg PO W/LUNCH tab Lidocaine 5% Patch [Lidoderm 5% Patch] 1 patch TOPICAL DAILY patch Magnesium Hydroxide [Milk of Magnesia Concentrate] 2,400 mg PO DAILY PRN ml PRN Reason: Constipation Sennosides-Docusate Sodium [Senokot-S] 2 each PO HS tab Cyclobenzaprine [Flexeril] 5 mg PO HS PRN #30 tab PRN Reason: Muscle Pain Hydrocodone/Acetaminophen [[place] 10-325] 1 each PO Q6H PRN #28 tab PRN Reason: Pain Continue Acetaminophen Tab [Tylenol] 1,000 mg PO Q8H PRN PRN Reason: Pain Gabapentin 600 mg PO BID Clopidogrel Bisulfate [Plavix] 75 mg PO DAILY Cilostazol [Pletal] 100 mg PO BID Atorvastatin Calcium [Lipitor] 40 mg PO HS lisinopriL [Prinivil] 20 mg PO DAILY Midodrine [ProAmatine] 5 mg PO TID PRN PRN Reason: low blood pressure Cyclobenzaprine [Flexeril] 5 mg PO HS PRN PRN Reason: Muscle Spasm DULoxetine HCL [Cymbalta] 30 mg PO DAILY Discontinued hydroCHLOROthiazide [Hydrodiuril] 25 mg PO DAILY No Action HYDROcodone/APAP 10-325MG [[place] 10-325] 1 tab PO BID PRN PRN Reason: Pain Discharge Medication List Acetaminophen Tab [Tylenol] 1,000 mg PO Q8H PRN 01/06/20 [History] Atorvastatin Calcium [Lipitor] 40 mg PO HS 01/06/20 [History] Cilostazol [Pletal] 100 mg PO BID 01/06/20 [History] Clopidogrel Bisulfate [Plavix] 75 mg PO DAILY 01/06/20 [History] Cyclobenzaprine [Flexeril] 5 mg PO HS PRN 01/06/20 [History] DULoxetine HCL [Cymbalta] 30 mg PO DAILY 01/06/20 [History] Gabapentin 600 mg PO BID 01/06/20 [History] HYDROcodone/APAP 10-325MG [[place] 10-325] 1 tab PO BID PRN 01/06/20 [History] Midodrine [ProAmatine] 5 mg PO TID PRN 01/06/20 [History] lisinopriL [Prinivil] 20 mg PO DAILY 01/06/20 [History] Cyclobenzaprine [Flexeril] 5 mg PO HS PRN #30 tab 01/10/20 [Rx] Ferrous Sulfate [Iron (65 MG Elemental)] 325 mg PO W/LUNCH tab 01/10/20 [Rx] Hydrocodone/Acetaminophen [[place] 10-325] 1 each PO Q6H PRN #28 tab 01/10/20 [Rx] Lidocaine 5% Patch [Lidoderm 5% Patch] 1 patch TOPICAL DAILY patch 01/10/20 [Rx] Magnesium Hydroxide [Milk of Magnesia Concentrate] 2,400 mg PO DAILY PRN ml 01/10/20 [Rx] Sennosides-Docusate Sodium [Senokot-S] 2 each PO HS tab 01/10/20 [Rx] Follow up Appointment(s)/Referral(s): Julien Cabrera PAC [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 Wound care and infection precautions, keep incision dry and covered while showering, no lotions, creams, moisturizers. No soaking, pools, hot tubs. Do not scrub over incision. 2. Weight-bear as tolerated with walker / cane until follow-up. 3. Ice and elevate when necessary. Do not exceed 20 minutes per hour with ice pack. 4. Utilize compression sleeve until seen at first follow up appointment. 5. Pain meds and anticoagulants per prescription. 6. Pain medication has potential to cause constipation. Increase oral fluid and fiber intake. Contact primary care provider if you have not had a bowel movement within 48 hours after discharge. 7. No anti-inflammatory medication until discussed at first post operative visit, this including Motrin, Aleve, Mobic, Diclofenac. 8. Follow up in office at 2 weeks postop with Ramakrishna Cabrera PA-C 9. Follow up with your primary care doctor 7-10 days after discharge. 10. Contact [facility] with any questions, . Discharge Disposition: TRANSFER TO SNF/ECF
[2020-01-10] MEDS: diazePAM 5 MG TAB PO PRN (14:06)
== END 2020-01-10 14:43 | DRG 481 ==
LOC: EC 13:03 → 4SSUR 14:42
PROVIDERS: ADMIT Orthopaedic Surgery; ATTEND Orthopaedic Surgery
PROC: 0QS706Z Reposition Left Upper Femur with Intramedullary Internal Fixation Device, Open Approach (ICD-10-PCS; principal; 2020-01-07 12:00)
PROC: 30233N1 Transfusion of Nonautologous Red Blood Cells into Peripheral Vein, Percutaneous Approach (ICD-10-PCS; 2020-01-08)
DX: S72.142A Displaced intertrochanteric fracture of left femur, initial encounter for closed fracture (principal); D62 Acute posthemorrhagic anemia; E87.1 Hypo-osmolality and hyponatremia; E78.5 Hyperlipidemia, unspecified; F17.210 Nicotine dependence, cigarettes, uncomplicated; G89.29 Other chronic pain; M54.9 Dorsalgia, unspecified; M54.2 Cervicalgia; I10 Essential (primary) hypertension; T50.2X5A Adverse effect of carbonic-anhydrase inhibitors, benzothiadiazides and other diuretics, initial encounter; W18.30XA Fall on same level, unspecified, initial encounter; Z79.02 Long term (current) use of antithrombotics/antiplatelets; Z79.899 Other long term (current) drug therapy; Z86.73 Personal history of transient ischemic attack (TIA), and cerebral infarction without residual deficits; W10.9XXA Fall (on) (from) unspecified stairs and steps, initial encounter; Z91.81 History of falling; Z20.828 Contact with and (suspected) exposure to other viral communicable diseases
CPT/HCPCS: 71045; 73502; 80048; 80053; 81003; 82550; 82570; 83735; 83930; 83935; 84100; 84484; 84560; 85025; 85027; 85610; 85730; 86850; 86900; 86901; 86920; 87635; 93005; 96374; 99285